=== PATIENT | female | born 1965 | race Caucasian/White ===

== ENCOUNTER 2017-10-25 17:27 | Inpatient (IN) | payer OTHER, MEDICAID ==
[~2017-10-25] VITALS: Ht 162.6 cm; Wt 138.8 kg
[2017-10-25] MEDS ORDERED: NEXIUM40 MG PO (17:42)
[2017-10-25] MEDS ORDERED: TRILEPTAL150 MG PO (17:43)
[2017-10-25] MEDS ORDERED: AMITRIPTYLINE H10 M3 PO (17:43)
[2017-10-25] MEDS ORDERED: LANTUS SOL100 UNIT/1 SUBQ (17:44)
[2017-10-25] MEDS ORDERED: PIOGLITAZONE15 MG PO (17:44)
[2017-10-25] MEDS ORDERED: METFORMIN HCL500 MG PO (17:44)
[2017-10-25] MEDS ORDERED: CELEBREX 200 M200 M1 PO (17:45)
[2017-10-25] MEDS ORDERED: SINGULAIR 10 MG10 M1 PO (17:45)
[2017-10-25] MEDS ORDERED: XYZAL5 MG PO (17:45)
[2017-10-25] MEDS ORDERED: PRAVACHOL40 MG PO (17:45)
[2017-10-25] MEDS ORDERED: DIOVAN40 MG PO (17:46)
[2017-10-25] MEDS ORDERED: FLONASE 0.05%50 MCG NASAL (17:46)
[2017-10-25] MEDS ORDERED: PROAIR HFA8.5 GM INH (17:46)
[2017-10-25 18:19] LABS: ABSOLUTE BASOPHILS 0.1 thou/uL (0.0-0.2); ABSOLUTE EOSINOPHILS 0.1 thou/uL (0.0-0.7); ABSOLUTE LYMPHOCYTES 2.9 thou/uL (0.8-5.3); ABSOLUTE MONOCYTES 1.1 thou/uL (0.0-1.2); ABSOLUTE NEUTROPHILS 9.2 thou/uL (1.6-8.1); BASOPHILS 0.5 %; EOSINOPHILS 0.9 %; HEMATOCRIT 38.4 % (37.0-47.0); HEMOGLOBIN 12.1 gm/dL (12.0-15.0); LYMPHOCYTES 21.6 %; MCH 25.2 pg (26.0-34.0); MCHC 31.5 g/dL (28.0-37.0); MCV 79.9 fL (80.0-100.0); MONOCYTES 8.3 %; MPV 7.9 fl. (7.2-11.1); NUCLEATED RBCS 0 /100WBC; PLATELET COUNT* 254 thou/uL (150-400); POLYS 68.7 %; RDW-CV 15.8 % (10.5-14.5); WBC 13.4 thou/uL (4.0-11.0)
[2017-10-25 18:27] LABS: ANION GAP 9 mmol/L (7-16); BUN 5 mg/dL (7-18); CALCIUM 8.6 mg/dL (8.5-10.1); CHLORIDE 101 mmol/L (98-107); CO2 29 mmol/L (21-32); CREATININE 0.7 mg/dL (0.6-1.3); GLUCOSE 116 mg/dL (70-99); POTASSIUM 3.1 mmol/L (3.5-5.1); SODIUM 139 mmol/L (136-145)
[2017-10-25 18:32] LABS: APTT 28.3 Seconds (25.0-31.3); INR 1.1; PROTIME 10.5 Seconds (9.20-11.50)
[2017-10-25 18:34] LABS: ALBUMIN 3.1 g/dL (3.4-5.0); ALKALINE PHOSPHATASE 119 U/L (46-116); LIPASE 84 U/L (73-393); SGOT 12 U/L (15-37); SGPT 19 U/L (30-65); TOTAL BILIRUBIN 0.6 mg/dL (<0.1-1.0); TOTAL PROTEIN 7.9 g/dL (6.4-8.2); TROPONIN-I LEVEL <0.06 ng/mL (<0.06)
[2017-10-25 19:01] LABS: URINE BILIRUBIN NEGATIVE (Negative); URINE BLOOD NEGATIVE (Negative); URINE CLARITY CLEAR; URINE COLOR YELLOW; URINE GLUCOSE-RANDOM NEGATIVE (Negative); URINE KETONES NEGATIVE (Negative); URINE LEUKOCYTES-REFLEX NEGATIVE (Negative); URINE NITRITE-REFLEX NEGATIVE (Negative); URINE PROTEIN NEGATIVE (Negative); URINE UROBILINOGEN 0.2 E.U./dl (0.2-1.0)
[2017-10-25 21:58] VITALS: BP 177/100
[2017-10-25 22:25] VITALS: BP 161/79
[2017-10-26 05:08] LABS: CALCIUM 8.2 mg/dL (8.5-10.1); CREATININE 0.7 mg/dL (0.6-1.3); MAGNESIUM 1.2 mg/dL (1.8-2.4); POTASSIUM 3.6 mmol/L (3.5-5.1)
[2017-10-26 08:55] VITALS: BP 144/68
[2017-10-26 09:40] VITALS: BP 144/68
--- NOTE | 2017-10-26 15:07 | EKG ---
[place] [address] ELECTROCARDIOGRAM REPORT Name: TEO NAVARRO Room: [address]#: [id number] Admission: 10/25/17 Attend Phys: Mary Armstrong MD Discharge: Date of : 65 Report #: [id number] THIS REPORT FOR: //name// [facility] [place] ED Test Date: 2017-10-25 Test Time: 17:42:30 Pat Name: TEO NAVARRO Department: Room: Gender: F Traffic Control Supervisor: Koki WHITTEN : 1965 Requested By: Luba Hudson Order Number: [id number] MD: [place] Measurements Intervals [place] Rate: 85 P: [place]: QRS: 61 QRSD: 143 T: 3 QT: 391 QTc: 465 Interpretive Statements sinus rhythm Right bundle branch block No previous ECG available for comparison Electronically Signed On 10-26-2017 15:07:36 CDT by [place] [email or web address] <ELECTRONICALLY SIGNED> By: [place] MD, [facility] 10/26/17 1507 D: [id number] [place] MD, FACC /EPI
[2017-10-26 16:00] VITALS: BP 149/79
[2017-10-26 21:15] VITALS: BP 177/81
[2017-10-26 23:52] VITALS: BP 139/75
[2017-10-27 04:05] LABS: HEMATOCRIT 35.4 % (37.0-47.0); HEMOGLOBIN 11.3 gm/dL (12.0-15.0); MCH 25.7 pg (26.0-34.0); MCHC 31.9 g/dL (28.0-37.0); MCV 80.4 fL (80.0-100.0); MPV 8.2 fl. (7.2-11.1); RBC 4.4 mil/uL (4.20-5.00); RDW-CV 15.5 % (10.5-14.5); WBC 10.7 thou/uL (4.0-11.0)
[2017-10-27 04:33] LABS: ALBUMIN 2.6 g/dL (3.4-5.0); CALCIUM 7.8 mg/dL (8.5-10.1); CREATININE 0.7 mg/dL (0.6-1.3); MAGNESIUM 1.1 mg/dL (1.8-2.4); POTASSIUM 3.4 mmol/L (3.5-5.1); TOTAL BILIRUBIN 0.6 mg/dL (<0.1-1.0); TOTAL PROTEIN 6.4 g/dL (6.4-8.2)
[2017-10-27 08:20] VITALS: BP 126/64
[2017-10-27 16:59] VITALS: BP 124/70
[2017-10-27 20:10] VITALS: BP 146/73
[2017-10-28 04:40] LABS: HEMATOCRIT 32.4 % (37.0-47.0); HEMOGLOBIN 10.3 gm/dL (12.0-15.0); MCH 25.8 pg (26.0-34.0); MCHC 31.8 g/dL (28.0-37.0); MCV 80.9 fL (80.0-100.0); MPV 8.6 fl. (7.2-11.1); RDW-CV 15.6 % (10.5-14.5); WBC 9.3 thou/uL (4.0-11.0)
[2017-10-28 04:52] LABS: CALCIUM 7.4 mg/dL (8.5-10.1); CREATININE 0.7 mg/dL (0.6-1.3); MAGNESIUM 1.3 mg/dL (1.8-2.4); POTASSIUM 3.1 mmol/L (3.5-5.1)
[2017-10-28 08:00] VITALS: BP 136/72
[2017-10-28] MEDS ORDERED: AZITHROMYCIN 2250 MG PO (08:09)
== END 2017-10-28 14:24 | disposition home or self-care (01) | DRG 392 ==
LOC: M.ERS 17:27 → M.ORTHSURG 21:06 → M.TBA-ER 21:06 → M.ORTHSURG 21:06
PROVIDERS: Nurse Practitioner Family; ADMIT Internal Medicine
PROC: 05HY33Z Insertion of Infusion Device into Upper Vein, Percutaneous Approach (ICD-10-PCS; principal; 2017-10-26)
DX: A08.4 Viral intestinal infection, unspecified (principal); R65.10 Systemic inflammatory response syndrome (SIRS) of non-infectious origin without acute organ dysfunction; E44.1 Mild protein-calorie malnutrition; K56.7 Ileus, unspecified; Z68.43 Body mass index [BMI] 50.0-59.9, adult; X30.XXXA Exposure to excessive natural heat, initial encounter; J44.9 Chronic obstructive pulmonary disease, unspecified; K21.9 Gastro-esophageal reflux disease without esophagitis; I10 Essential (primary) hypertension; F31.9 Bipolar disorder, unspecified; E78.00 Pure hypercholesterolemia, unspecified; G47.30 Sleep apnea, unspecified; E11.9 Type 2 diabetes mellitus without complications; E87.6 Hypokalemia; T67.5XXA Heat exhaustion, unspecified, initial encounter; X58.XXXA Exposure to other specified factors, initial encounter; Z79.2 Long term (current) use of antibiotics; Z79.4 Long term (current) use of insulin; Z79.899 Other long term (current) drug therapy; Z91.040 Latex allergy status; Z87.891 Personal history of nicotine dependence; Y93.89 Activity, other specified; Y92.89 Other specified places as the place of occurrence of the external cause; Y99.8 Other external cause status